=== PATIENT | male | born 1990 | race Caucasian/White ===

== ENCOUNTER 2023-06-13 14:14 | Emergency (ER) | payer SELFPAY ==
[2023-06-13 14:15] VITALS: BP 152/100; PULSE 114; RESP 16; TEMP 37.1; O2SAT 97; BMI 32.6
--- NOTE | 2023-06-13 14:40 | EX.ED.SAOD ---
HPI <SANDHYA De Los Santos - Last Filed: 06/13/23 17:57> History of Present Illness Chief Complaint: Mental Health Narrative Narrative: Patient presenting today after drinking 3 bottles of cough syrup that he bought [id number] today. He reports that it was Coricidin and he drank it prior to calling EMS. He reports that he feels very anxious. He states that he has done this before and he drinks it to get high. He was not trying to harm himself. He denies any suicidal thoughts/ideations, thoughts of self-harm, thoughts of harming others, visual/auditory hallucinations. He admits to using meth about a week ago but denies any other substance use. He denies a PMH of any chronic health conditions. He denies any nausea, vomiting, chest pain, and shortness of breath. PFSH <SANDHYA De Los Santos - Last Filed: 06/13/23 17:57> PFSH Medical History no medical history Allergy/AdvReac Type Severity Reaction Status Date / Time No Known Allergies Allergy Verified 06/13/23 14:18 Surgical History no surgical history Social History Smoking Status: Never smoker ROS <SANDHYA De Los Santos - Last Filed: 06/13/23 17:57> ROS ED Constitutional Constitutional ED: Denies chills or fever(s) Cardiovascular Cardiovascular: Reports racing heartbeat; Denies chest pain Respiratory/Chest Respiratory/Chest: Denies cough or dyspnea Gastrointestinal Gastrointestinal: Denies abdominal pain, nausea or vomiting Genitourinary Genitourinary ED: Denies dysuria or urinary frequency Musculoskeletal Musculoskeletal: Denies arthralgias or myalgias Integumentary Denies abscess, Abrasions or rash Neurologic Neurologic: Denies confusion, dizziness, paresthesias or weakness Psychiatric Psychiatric: Reports depression; Denies suicidal ideation or suicidal thoughts EXAM <SANDHYA De Los Santos Last Filed: 06/13/23 17:57> Physical Exam Const Vital Signs: 06/13/23 14:15 06/13/23 16:12 06/13/23 17:20 Temperature 98.8 F Temperature Source Temporal Pulse Rate 114 H 110 H 110 H Respiratory Rate 16 18 18 Blood Pressure 152/100 H 154/76 H 154/76 H Blood Pressure Mean 117 102 Pulse Ox 97 98 98 Oxygen Delivery Method Room Air Positive well nourished and well developed Constitutional Narrative: Anxious appearing General Appearance ED: well developed HEENT Reports normocephalic and head/scalp atraumatic Mouth ED: Yes moist mucous membranes normal Eyes EOMs intact bilaterally Eyes Narrative: Dilated pupils Neck full ROM and supple Chest Wall inspection of chest normal Resp normal respiratory effort and clear to auscultation bilaterally Cardio regular rate and regular rhythm GI soft to palpation, non-tender, non-distended and no masses Back/Spine normal ROM and normal to inspection Extremity normal to inspection and full ROM Neuro oriented x3, CN's II-XII intact bilaterally, moves all extremities, no focal motor deficits and no sensory deficits noted Sensorium / Orientation: awake and alert Psych Mood & Affect: anxious Skin no rashes or lesions noted and no wounds <Dr. Jhon Mon MD - Last Filed: 06/17/23 08:23> Physical Exam Const Vital Signs: 06/13/23 14:15 06/13/23 16:12 06/13/23 17:20 Temperature 98.8 F Temperature Source Temporal Pulse Rate 114 H 110 H 110 H Respiratory Rate 16 18 18 Blood Pressure 152/100 H 154/76 H 154/76 H Blood Pressure Mean 117 102 Pulse Ox 97 98 98 Oxygen Delivery Method Room Air MDM <SANDHYA De Los Santos - Last Filed: 06/13/23 17:57> [facility] Narrative Medical decision making narrative: Patient presenting today after ingesting Coricidin tablets in an attempt to get high. Initially he told me it was a cough syrup but then reported that it was tablets. Patient is anxious, is tachycardic, has dilated pupils, and has altered mentation. He is pacing in the room and tremoring. He was given activated charcoal as well as IV fluids. On reexamination patient reports he is feeling much better. His speech is much clearer and he no longer appears anxious. He did not do this in an attempt to harm himself. He reports that he just broke up with his girlfriend and has been having a difficult time dealing with that. workers compensation attorney did see patient and he did tell her that he is currently homeless after breaking up with his girlfriend, he was given resources on places he can stay as well as getting help for his polysubstance abuse. Patient was observed in the ED and feels well enough to be discharged. I have given him a referral for a PCP as he does not have 1. He is to follow-up with the PCP and has been given return instructions. He will be discharged home in stable condition and is comfortable with plan. I have personally performed a face to face assessment of the patient and have reviewed the CHAR Note. I performed a substantive portion of the visit including all aspects of the following. My teixeira findings include: History is remarkable for patient stating he took 48 Chlor-Trimeton tablets to get high. He does admit to methamphetamine use 1 week ago. He does admit to cannabis use. He denies any other drug use. Patient denies headache. He does complain of dry mouth and thirst. He does report bilateral blurred vision. He denies chest pain or shortness of breath. He denies abdominal pain. He denies intentionally taking this medicine to harm himself. Trapeze Performer run sheet documents that he took the pills to get high. Exam is remarkable for anticholinergic toxidrome. Patient has dilated pupils. He has dry mouth. He is slightly flushed. He is tachycardic. He has altered mental status. Head is atraumatic normocephalic. Ears are normal. TMs are normal. Posterior pharynx is unremarkable. Nares patent. Neck is supple. Lungs are clear to auscultation with symmetric breath sounds. Heart is rapid and regular. Monitor reveals a sinus tachycardia of 120. There is no ectopy. Abdomen is soft nontender. Examination of the back is unremarkable. Examination of the extremities is unremarkable with no clubbing or cyanosis. He has distal peripheral pulses. He has no rash or lesions noted on dermatologic exam. Patient's mental status is altered due to the anticholinergic toxidrome. Medical Decision Making blood work was obtained as well as talk screen and patient was given activated charcoal. Patient drink the activated charcoal without difficulty. Patient was read assessed at 1548. He is speaking more clearly. He states he does not feel foggy. Other additions or changes: [None] Lab Data Labs: Laboratory Results - last 24 hr 06/13/23 06/13/23 14:02 15:00 WBC 9.8 RBC 4.47 L Hgb 13.2 Hct 40.2 MCV 89.9 MCH 29.5 MCHC 32.8 RDW Std Deviation 48.3 H RDW Coeff of Porter 14.6 Plt Count 274 MPV 11.8 Immature Gran % (Auto) 0.800 Neut % (Auto) 68.4 Lymph % (Auto) 22.4 [place] % (Auto) 7.6 Eos % (Auto) 0.3 Baso % (Auto) 0.5 Absolute Neuts (auto) 6.7 Absolute Lymphs (auto) 2.19 Nucleated RBC % 0 Sodium 140 Potassium 3.4 L Chloride 108 H Carbon Dioxide 27.0 Anion Gap 5 BUN 12 Creatinine 1.12 Estim Creat Clear Calc 97.77 Est GFR (MDRD) Af Amer 97 Est GFR (MDRD) Non-Af 81 BUN/Creatinine Ratio 10.7 Glucose 97 Calcium 9.6 Total Bilirubin 0.50 AST 23 ALT 43 Alkaline Phosphatase 73 Total Protein 8.1 Albumin 3.9 Globulin 4.2 Albumin/Globulin Ratio 0.9 Urine Opiates Screen POSITIVE H Urine Methadone Screen NEGATIVE Ur Barbiturates Screen NEGATIVE Ur Phencyclidine Scrn POSITIVE H Ur Amphetamines Screen POSITIVE H MDMA (Ecstasy) Screen NEGATIVE U Benzodiazepines Scrn NEGATIVE Urine Cocaine Screen NEGATIVE U Cannabinoids Screen POSITIVE H Ur Drug Screen Comment <Dr. Jhon Mon MD - Last Filed: 06/17/23 08:23> MDM MDM Narrative Medical decision making narrative: I have personally performed a face to face assessment of the patient and have reviewed the CHAR Note. I performed a substantive portion of the visit including all aspects of the following. My teixeira findings include: History is remarkable for patient stating he took 48 Chlor-Trimeton tablets to get high. He does admit to methamphetamine use 1 week ago. He does admit to cannabis use. He denies any other drug use. Patient denies headache. He does complain of dry mouth and thirst. He does report bilateral blurred vision. He denies chest pain or shortness of breath. He denies abdominal pain. He denies intentionally taking this medicine to harm himself. Trapeze Performer run sheet documents that he took the pills to get high. Exam is remarkable for anticholinergic toxidrome. Patient has dilated pupils. He has dry mouth. He is slightly flushed. He is tachycardic. He has altered mental status. Head is atraumatic normocephalic. Ears are normal. TMs are normal. Posterior pharynx is unremarkable. Nares patent. Neck is supple. Lungs are clear to auscultation with symmetric breath sounds. Heart is rapid and regular. Monitor reveals a sinus tachycardia of 120. There is no ectopy. Abdomen is soft nontender. Examination of the back is unremarkable. Examination of the extremities is unremarkable with no clubbing or cyanosis. He has distal peripheral pulses. He has no rash or lesions noted on dermatologic exam. Patient's mental status is altered due to the anticholinergic toxidrome. Medical Decision Making blood work was obtained as well as talk screen and patient was given activated charcoal. Patient drink the activated charcoal without difficulty. Patient was read assessed at 1548. He is speaking more clearly. He states he does not feel foggy. Other additions or changes: [None] Lab Data Attestation: I reviewed the patient's lab results. Lab results narrative: CBC is unremarkable. Comprehensive metabolic panel is unremarkable. Tox screen is positive for opiates, phencyclidine, amphetamines and cannabinoids. Labs: Laboratory Results - last 24 hr 06/13/23 06/13/23 14:02 15:00 WBC 9.8 RBC 4.47 L Hgb 13.2 Hct 40.2 MCV 89.9 MCH 29.5 MCHC 32.8 RDW Std Deviation 48.3 H RDW Coeff of Porter 14.6 Plt Count 274 MPV 11.8 Immature Gran % (Auto) 0.800 Neut % (Auto) 68.4 Lymph % (Auto) 22.4 [place] % (Auto) 7.6 Eos % (Auto) 0.3 Baso % (Auto) 0.5 Absolute Neuts (auto) 6.7 Absolute Lymphs (auto) 2.19 Nucleated RBC % 0 Sodium 140 Potassium 3.4 L Chloride 108 H Carbon Dioxide 27.0 Anion Gap 5 BUN 12 Creatinine 1.12 Estim Creat Clear Calc 97.77 Est GFR (MDRD) Af Amer 97 Est GFR (MDRD) Non-Af 81 BUN/Creatinine Ratio 10.7 Glucose 97 Calcium 9.6 Total Bilirubin 0.50 AST 23 ALT 43 Alkaline Phosphatase 73 Total Protein 8.1 Albumin 3.9 Globulin 4.2 Albumin/Globulin Ratio 0.9 Urine Opiates Screen POSITIVE H Urine Methadone Screen NEGATIVE Ur Barbiturates Screen NEGATIVE Ur Phencyclidine Scrn POSITIVE H Ur Amphetamines Screen POSITIVE H MDMA (Ecstasy) Screen NEGATIVE U Benzodiazepines Scrn NEGATIVE Urine Cocaine Screen NEGATIVE U Cannabinoids Screen POSITIVE H Ur Drug Screen Comment Discharge Plan Triage Chief Complaint: Mental Health ED Midlevel Provider: Elena Wyman ED Provider: Jhon Mon Dx/Rx/DC Orders Clinical Impression: Sinus tachycardia, Acute metabolic encephalopathy, Anticholinergic drug overdose, Polysubstance abuse Instructions: ED Drug Abuse Primary Care Provider: Care Physician,No Primary Referrals: Chico Person MD [Non-Staff] - 3-5 Days NOT,DEFINED [Non-Staff] - Activity Restrictions/Additional Instructions: I have given you a referral for a PCP that you can follow-up with. Please return for any worsening of your symptoms. Disposition Disposition: Home, Self Care Discharge Date/Time: 06/13/23 17:53
[2023-06-13] MEDS: Activated Charcoal 50 GM/240 ML BOT PO (14:58)
[2023-06-13] MEDS: 0.9% Normal Saline 1,000 ML 999 ML IV (15:07)
[2023-06-13 15:15] LABS: Absolute Lymphocyte Count 2.19 X10^3/uL (0.83-4.51); Absolute Neutrophil Count 6.7 X10^3/uL (2.0-7.7); Basophil# 0.05 X10^3/uL; Basophil% 0.5 % (0-1); Eosinophil# 0.03 X10^3/uL; Eosinophils% 0.3 % (0-5); Hematocrit 40.2 % (40-54); Hemoglobin 13.2 g/dL (13.0-16.5); Lymphocyte # 2.19 X10^3/ul (0.83-4.51); Lymphocyte % 22.4 % (19-41); Mean Corp Hgb Conc 32.8 g/dL (32-36); Mean Corpuscular Hgb 29.5 pg (27.0-32.0); Mean Corpuscular Volume 89.9 fL (80-94); Mean Platelet Vol. 11.8 fl (6.2-12.0); Monocyte# 0.74 X10^3/uL; Monocyte% 7.6 % (0-10); NRBC Flagged by Analyzer 0 % (0-5); Neutrophil # 6.69 X10^3/uL (2.7-7.7); Neutrophil % 68.4 % (47-70); Platelet Count 274 K/mm3 (150-450); RBC Distribution Width CV 14.6 % (11.6-14.6); RBC Distribution Width SD 48.3 fl (35.1-43.9); Red Blood Count 4.47 M/mm3 (4.6-6.2); White Blood Count 9.8 K/mm3 (4.4-11.0)
[2023-06-13 15:24] LABS: ALB/GLOB Ratio 0.9 RATIO (0.9-2.4); AST(SGOT) 23 U/L (15-37); Alanine Aminotransfer ALT/SGPT 43 U/L (16-61); Albumin, Serum 3.9 g/dL (3.2-5.0); Alkaline Phosphatase 73 U/L (45-117); Anion Gap 5 (5-15); BUN 12 mg/dL (7-18); BUN/Creat Ratio 10.7 RATIO (10-20); Calcium,Total 9.6 mg/dL (8.5-10.1); Chloride 108 mmol/L (98-107); Creatinine, Serum 1.12 mg/dL (0.70-1.30); EST Glomerular Filtration Rate 81 mL/min (>60); Est Glom Filt Rate - Afr Amer 97 mL/min (>60); Estimated Creatinine Clearance 97.77 ml/min; Globulin 4.2 g/dL (2.2-4.2); Glucose 97 mg/dL (74-106); Potassium 3.4 mmol/L (3.5-5.1); Protein, Total 8.1 g/dL (6.4-8.2); Sodium Level 140 mmol/L (136-145)
[2023-06-13 15:34] LABS: Amphetamine Urine VISTA POSITIVE (<1000 ng/mL); Barbiturate Urine VISTA NEGATIVE (< 200 ng/mL); Benzodiazepine Urine VISTA NEGATIVE (< 200 ng/mL); Cocaine Urine VISTA NEGATIVE (< 300 ng/mL); Ecstacy Urine VISTA NEGATIVE (< 500 ng/mL); Methadone Urine VISTA NEGATIVE (< 300 ng/mL); PCP Urine VISTA POSITIVE (< 25 ng/mL); THC Urine VISTA POSITIVE (< 50 ng/mL); Vista UDS pH Range 5
[2023-06-13 16:12] VITALS: BP 154/76; PULSE 110; RESP 18; O2SAT 98
--- NOTE | 2023-06-13 17:18 | CM.ED ---
Social Work SW consulted with MD Mon regarding patient's presenting problems and safety concerns. explained SW evaluation is not needed as patient denies SI and reports drinking cold medicine to get high. SW met with patient and introduced herself and role as [facility] SW. Patient lying on hospital bed and agreeable to speak with SW. SW inquired about recent events and insurance. Patient states he drank cough medicine to get high and has been using other substances. Patient denies SI but reports struggling with anxiety and depression. Patient reports having no insurance currently nor job as he recently moved to [place] a few months ago from [place] to be with his now ex girlfriend. Patient explained his father lives in [place] but he is unsure where he will go. SW provided patient with emotional support and reviewed the following resources: Medicaid application, [facility] resource list, homeless shelters, community counseling information including crisis contact numbers and the treatment navigator contact phone number. SW also educated patient on [facility] services. Patient was receptive towards resources and voiced no other needs at this time. SW updated care team of resources provided. Char Price MSW, NOE
[2023-06-13 17:20] VITALS: BP 154/76; PULSE 110; RESP 18; O2SAT 98
== END 2023-06-13 17:53 | disposition home or self-care (01) ==
PROVIDERS: Physician Assistant; Emergency Provider Emergency Medicine; Visit Provider Emergency Medicine
DX: T44.3X1A Poisoning by other parasympatholytics [anticholinergics and antimuscarinics] and spasmolytics, accidental (unintentional), initial encounter (principal); F19.10 Other psychoactive substance abuse, uncomplicated; G93.41 Metabolic encephalopathy; R00.0 Tachycardia, unspecified; H53.8 Other visual disturbances; H57.04 Mydriasis; Z59.00 Homelessness unspecified
CPT/HCPCS: 80053; 80307; 85025; 96360; 96361; 99285; J7030

== ENCOUNTER 2023-07-27 17:43 | Emergency (ER) | payer SELFPAY ==
[2023-07-27 17:44] VITALS: BP 144/83; PULSE 101; RESP 20; TEMP 36.6; O2SAT 94; BMI 32.7
--- NOTE | 2023-07-27 17:55 | EKG12_ITS ---
Test Reason : OD Blood Pressure : / mmHG Vent. Rate : 107 BPM Atrial Rate : 107 BPM P-R Int : 172 ms QRS Dur : 088 ms QT Int : 334 ms P-R-T Axes : 074 074 028 degrees QTc Int : 445 ms Sinus tachycardia Possible Left atrial enlargement Septal infarct , age undetermined Abnormal ECG Confirmed by NIC MAYBERRY, MAURICIO ([id number]), technical editor MALCOLM PEREYRA ([id number]) on 07/30/2023 11:46:58 AM Referred By: Confirmed By:JUAN LUIS LUCERO MD
[2023-07-27 18:17] LABS: Absolute Lymphocyte Count 1.84 X10^3/uL (0.83-4.51); Absolute Neutrophil Count 12.4 X10^3/uL (2.0-7.7); Basophil# 0.06 X10^3/uL; Basophil% 0.4 % (0-1); Eosinophil# 0.03 X10^3/uL; Eosinophils% 0.2 % (0-5); Hematocrit 39.3 % (40-54); Hemoglobin 12.9 g/dL (13.0-16.5); Lymphocyte # 1.84 X10^3/ul (0.83-4.51); Mean Corp Hgb Conc 32.8 g/dL (32-36); Mean Corpuscular Hgb 29.5 pg (27.0-32.0); Mean Corpuscular Volume 89.7 fL (80-94); Mean Platelet Vol. 10.7 fl (6.2-12.0); Monocyte# 0.82 X10^3/uL; Monocyte% 5.4 % (0-10); NRBC Flagged by Analyzer 0 % (0-5); Neutrophil # 12.42 X10^3/uL (2.7-7.7); Neutrophil % 81.3 % (47-70); Platelet Count 300 K/mm3 (150-450); RBC Distribution Width CV 13.9 % (11.6-14.6); RBC Distribution Width SD 45.2 fl (35.1-43.9); Red Blood Count 4.38 M/mm3 (4.6-6.2); White Blood Count 15.3 K/mm3 (4.4-11.0)
[2023-07-27 18:26] LABS: Prothrombin Time (Protime)PT. 13.3 SECONDS (11.7-14.9)
[2023-07-27 18:31] LABS: ALB/GLOB Ratio 0.9 RATIO (0.9-2.4); AST(SGOT) 25 U/L (15-37); Alanine Aminotransfer ALT/SGPT 41 U/L (16-61); Albumin, Serum 3.7 g/dL (3.2-5.0); Alkaline Phosphatase 69 U/L (45-117); Anion Gap 3 (5-15); BUN 8 mg/dL (7-18); BUN/Creat Ratio 8.1 RATIO (10-20); Chloride 106 mmol/L (98-107); Creatinine, Serum 0.98 mg/dL (0.70-1.30); EST Glomerular Filtration Rate 94 mL/min (>60); Est Glom Filt Rate - Afr Amer 113 mL/min (>60); Estimated Creatinine Clearance 111.73 ml/min; Globulin 4.2 g/dL (2.2-4.2); Glucose 75 mg/dL (74-106); Potassium 3.4 mmol/L (3.5-5.1); Protein, Total 7.9 g/dL (6.4-8.2); Sodium Level 135 mmol/L (136-145)
--- NOTE | 2023-07-27 18:38 | ED.RN ---
THIS RN CHECK WITH DR BUSTOS TO SEE IF HE WANTED US TO WAIT FOR 4 HOUR TYLENOL LEVEL BEFORE GIVING ACETADOTE,PER DR. BUSTOS-SETH TO GIVE ACETADOTE NOW WITHOUT LEVEL.
[2023-07-27 18:56] LABS: Acetaminophen (Tylenol) Level < 2.0 ug/mL (10.0-30.0); Alcohol, Blood (Medical)-Serum < 3.0 mg/dL
[2023-07-27 18:57] LABS: Amphetamine Urine VISTA NEGATIVE (<1000 ng/mL); Barbiturate Urine VISTA NEGATIVE (< 200 ng/mL); Benzodiazepine Urine VISTA NEGATIVE (< 200 ng/mL); Cocaine Urine VISTA NEGATIVE (< 300 ng/mL); Ecstacy Urine VISTA NEGATIVE (< 500 ng/mL); Methadone Urine VISTA NEGATIVE (< 300 ng/mL); PCP Urine VISTA POSITIVE (< 25 ng/mL); THC Urine VISTA POSITIVE (< 50 ng/mL); Vista UDS pH Range 5
[2023-07-27] MEDS: Acetylcysteine 15,000 MG in Dextrose 5%-Water (250mL Bag) 200 ML 200 MG IV (19:23)
[2023-07-27 19:28] VITALS: BP 141/84; PULSE 112; RESP 16; O2SAT 95
--- NOTE | 2023-07-27 20:01 | EDS_ITS ---
HPI History of Present Illness Chief Complaint: Overdose Onset/Context/Timing Onset: Today Narrative Narrative: Patient took 2 boxes of Coricidin cough and cold sometime this morning. Presented this evening because he did not like the way he felt. He took this to try to get high. He denies any suicidal or homicidal thoughts. No other associated symptoms. Nothing makes it better or worse. PFSH PFSH Home Medications NK 07/27/23 [History Last Taken Unknown] Allergy/AdvReac Type Severity Reaction Status Date / Time No Known Allergies Allergy Verified 06/13/23 14:18 Social History Smoking Status: Never smoker ROS ROS ED Review of Systems ROS Unobtainable: Denies due to encephalopathy Constitutional Constitutional ED: Denies fever(s) Eyes Eyes: Denies blurry vision or change in vision ENT ENT ED: Denies ear pain Cardiovascular Cardiovascular: Denies chest pain Respiratory/Chest Respiratory/Chest: Denies dyspnea Gastrointestinal Gastrointestinal: Denies abdominal pain Genitourinary Genitourinary ED: Denies dysuria Musculoskeletal Musculoskeletal: Denies arthralgias Integumentary Denies abscess Neurologic Neurologic: Denies headache(s) Psychiatric Psychiatric: Denies anxiety, depression, suicidal ideation or suicidal thoughts Endocrine Endocrinology: Denies cold intolerance Hematologic/Lymphatic Hematologic/Lymphatic: Denies systems reviewed and no addt'l complaints, except as documented Allergic/Immunologic Allergic/Immunologic ED: Denies mouth swelling EXAM Physical Exam Const Vital Signs: 07/27/23 17:44 07/27/23 19:28 Temperature 97.8 F Temperature Source Temporal Pulse Rate 101 H 112 H Respiratory Rate 20 H 16 Blood Pressure 144/83 H 141/84 H Blood Pressure Mean 103 103 Pulse Ox 94 95 Oxygen Delivery Method Room Air Positive well nourished and well developed General Appearance ED: well developed HEENT Reports moist mucous membranes Eyes EOMs intact bilaterally Resp normal respiratory effort and clear to auscultation bilaterally Cardio regular rate and regular rhythm GI normal to inspection, nondistended, normoactive bowel sounds, non-tender and non-distended Extremity normal to inspection Neuro Neuro Narrative: Psychomotor slowing Sensorium / Orientation: alert Psych Attitude: No agitated Mood & Affect: depressed; Negative for anxious or tearful Skin no rashes or lesions noted MDM MDM MDM Narrative Medical decision making narrative: It was unclear if the patient's formulation contains Tylenol, so N- acetylcysteine was ordered empirically. EKG showed sinus rhythm. Normal intervals and no widening. He was placed on the monitor. Basic labs including LFTs, INR were unremarkable. Toxicology screen was positive for multiple substances, but Tylenol level was negative. Patient was discussed with poison control. Advised waiting 6 hours for the normal formulation and rechecking his mental status. The patient's mental status improved and he had no complaints. He did not want to wait the full 6 hours. He said that he took the meds longer than 6 hours ago. I advised that I would like to recheck his Tylenol level, but he declined. If he truly took the meds greater than 6 hours ago, I believe this is reasonable. He is not suicidal or homicidal and will be discharged home. Impression #1 Coricidin overdose Impression #2 dextromethorphan overdose Impression #3 chlorpheniramine overdose Lab Data Labs: Laboratory Results - last 24 hr 07/27/23 18:09 WBC 15.3 H RBC 4.38 L Hgb 12.9 L Hct 39.3 L MCV 89.7 MCH 29.5 MCHC 32.8 RDW Std Deviation 45.2 H RDW Coeff of Porter 13.9 Plt Count 300 MPV 10.7 Immature Gran % (Auto) 0.700 Neut % (Auto) 81.3 H Lymph % (Auto) 12.0 L [place] % (Auto) 5.4 Eos % (Auto) 0.2 Baso % (Auto) 0.4 Absolute Neuts (auto) 12.4 H Absolute Lymphs (auto) 1.84 Nucleated RBC % 0 PT 13.3 INR 1.0 Sodium 135 L Potassium 3.4 L Chloride 106 Carbon Dioxide 26.0 Anion Gap 3 L BUN 8 Creatinine 0.98 Estim Creat Clear Calc 111.73 Est GFR (MDRD) Af Amer 113 Est GFR (MDRD) Non-Af 94 BUN/Creatinine Ratio 8.1 L Glucose 75 Calcium 9.0 Total Bilirubin 0.50 AST 25 ALT 41 Alkaline Phosphatase 69 Total Protein 7.9 Albumin 3.7 Globulin 4.2 Albumin/Globulin Ratio 0.9 Urine Opiates Screen POSITIVE H Urine Methadone Screen NEGATIVE Acetaminophen < 2.0 L Ur Barbiturates Screen NEGATIVE Ur Phencyclidine Scrn POSITIVE H Ur Amphetamines Screen NEGATIVE MDMA (Ecstasy) Screen NEGATIVE U Benzodiazepines Scrn NEGATIVE Urine Cocaine Screen NEGATIVE U Cannabinoids Screen POSITIVE H Ur Drug Screen Comment Ethyl Alcohol < 3.0 Discharge Plan Triage Chief Complaint: Overdose ED Provider: Alexey Turner Dx/Rx/DC Orders Instructions: ED Accidental Ingestion ... Prescriptions: No Action NK Primary Care Provider: Care Physician,No Primary Referrals: Avis Gill MD [Med Staff - Assistant Professor Surgical Technology] - Disposition Disposition: Home, Self Care
[2023-07-27 20:11] VITALS: BP 143/83; PULSE 93; RESP 16; O2SAT 95
== END 2023-07-27 20:20 | disposition home or self-care (01) ==
PROVIDERS: Emergency Provider Emergency Medicine; Visit Provider Emergency Medicine
DX: T48.3X1A Poisoning by antitussives, accidental (unintentional), initial encounter (principal); T45.0X1A Poisoning by antiallergic and antiemetic drugs, accidental (unintentional), initial encounter
CPT/HCPCS: 80053; 80307; 80329; 82077; 85025; 85610; 93005; 96365; 99284; J7050; A4216; G0480

== ENCOUNTER 2023-09-01 12:15 | Emergency (ER) | payer SELFPAY ==
[2023-09-01 12:16] VITALS: BP 136/96; PULSE 96; RESP 22; TEMP 36.6; O2SAT 96; BMI 31.5
--- NOTE | 2023-09-01 12:30 | RAD_ITS ---
INDICATION: fall -- -- RIGHT ANTERIOR MID RIB/ABD PAIN, UNSURE OF INJURY EXAMINATION/TECHNIQUE: X-RAY - XR Ribs Unilateral W/ PA Chest Min 3 Views COMPARISON: No relevant prior comparison study available FINDINGS: SOFT TISSUES: No soft tissue swelling or gas. BONES: No displaced fracture. No sclerotic or destructive changes observed. VISUALIZED LUNGS: Clear. No pneumothorax. RAD/Ribs Uni Min 3V w/PA Chest IMPRESSION: No evidence of displaced rib fracture. Electronically Signed: Noe Martinez MD at 12:46 EDT ,
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
[2023-09-01 13:11] VITALS: BP 118/72; PULSE 61; RESP 15; O2SAT 97
== END 2023-09-01 13:11 | disposition home or self-care (01) ==
PROVIDERS: Emergency Provider Emergency Medicine; Visit Provider Emergency Medicine
DX: S29.019A Strain of muscle and tendon of unspecified wall of thorax, initial encounter (principal); S20.211A Contusion of right front wall of thorax, initial encounter; R07.81 Pleurodynia; V18.4XXA Pedal cycle driver injured in noncollision transport accident in traffic accident, initial encounter; Y93.55 Activity, bike riding
CPT/HCPCS: 71101; 99282

== ENCOUNTER 2023-09-12 15:03 | Emergency (ER) | payer SELFPAY ==
[2023-09-12 15:04] VITALS: BP 153/90; PULSE 118; RESP 19; TEMP 36.9; O2SAT 97
[2023-09-12 15:08] VITALS: BP 153/90; PULSE 111; RESP 24; O2SAT 94
--- NOTE | 2023-09-12 16:01 | EX.ED.SAOD ---
HPI History of Present Illness Chief Complaint: Mental Health Narrative Narrative: 33-year-old male who initially presented for shortness of breath states he no longer is short of breath. He states he took too much Coricidin today. He does not know how much he took but he states that he is tripping. He denies chest pain or shortness of breath currently. He denies any illegal drug use. States he washed his Coricidin down with water and not alcohol. PFSH PFS Medical History (Updated 09/12/23 @ 15:08 by Faby Suresh) No acute medical problems Home Medications NK 07/27/23 [History Last Taken Unknown] naproxen 500 mg tablet (Naprosyn) 500 mg PO BID PRN pain #20 tabs 09/01/23 [Rx Last Taken Unknown] Allergy/AdvReac Type Severity Reaction Status Date / Time No Known Allergies Allergy Verified 09/12/23 15:07 Social History Smoking Status: Never smoker EXAM Physical Exam Const Vital Signs: 09/12/23 15:04 09/12/23 15:08 09/12/23 16:03 Temperature 98.4 F Temperature Source Temporal Pulse Rate 118 H 111 H 73 Respiratory Rate 19 H 24 H 22 H Blood Pressure 153/90 H 153/90 H Blood Pressure Mean 111 111 Pulse Ox 97 94 Oxygen Delivery Method Room Air Room Air 09/12/23 17:00 09/12/23 18:00 09/12/23 19:00 Temperature Temperature Source Pulse Rate 103 H Respiratory Rate 18 16 16 Blood Pressure Blood Pressure Mean Pulse Ox Oxygen Delivery Method MDM MDM MDM Narrative Medical decision making narrative: Patient presenting with confusion and altered mental status. He ate some Coricidin DM not sure how much. He is altered. He denies any drug use or alcohol use. I do not see any evidence of trauma. Looks like he has been here before with similar symptoms. I obtained a CBC to assess white blood cell count, hemoglobin, platelets. BMP to assess renal function, electrolytes, ammonia to assess ammonia level. Urine drug screen will be obtained. Alcohol level will be obtained. Seen Aminofen level and salicylate level will be obtained. CBC shows leukocytosis 11.7. Hemoglobin stable 12.8. Platelets are normal at 260. Renal function and electrolytes unremarkable. Ammonia level normal at 21. Salicylates less than 1.7, acetaminophen less than 2.0. EtOH is negative. Urine drug screen positive for PCP, amphetamines, DNA, cannabinoids. Patient was given IV fluids. He was monitored here. He eventually went to sleep. He has been here for about 6 hours monitoring. He woke up and feels better and wants to go home. I feel he stable for discharge at this time. He has stable gait and ambulated out of the emergency room Impression: 1. PCP abuse 2. Cannabinoid abuse 3. Amphetamine abuse 4. MDMA abuse. Lab Data Attestation: I reviewed the patient's lab results. Labs: Laboratory Results - last 24 hr 09/12/23 09/12/23 14:50 18:20 WBC 11.7 H RBC 4.37 L Hgb 12.8 L Hct 38.6 L MCV 88.3 MCH 29.3 MCHC 33.2 RDW Std Deviation 47.2 H RDW Coeff of Porter 14.6 Plt Count 260 MPV 11.8 Immature Gran % (Auto) 0.300 Neut % (Auto) 57.6 Lymph % (Auto) 26.1 [place] % (Auto) 14.1 H Eos % (Auto) 1.4 Baso % (Auto) 0.5 Absolute Neuts (auto) 6.7 Absolute Lymphs (auto) 3.05 Nucleated RBC % 0 Differential Comment SCANNED Sodium 141 Potassium 2.9 L Chloride 106 Carbon Dioxide 29.0 Anion Gap 6 BUN 8 Creatinine 1.12 Est GFR (MDRD) Af Amer 97 Est GFR (MDRD) Non-Af 80 BUN/Creatinine Ratio 7.1 L Glucose 76 Calcium 9.3 Ammonia 21.0 Salicylates < 1.7 L Urine Opiates Screen NEGATIVE Urine Methadone Screen NEGATIVE Acetaminophen < 2.0 L Ur Barbiturates Screen NEGATIVE Ur Phencyclidine Scrn POSITIVE H Ur Amphetamines Screen POSITIVE H MDMA (Ecstasy) Screen POSITIVE H U Benzodiazepines Scrn NEGATIVE Urine Cocaine Screen NEGATIVE U Cannabinoids Screen POSITIVE H Ur Drug Screen Comment Ethyl Alcohol < 3.0 Discharge Plan Triage Chief Complaint: Mental Health ED Provider: Eddie Garcia Dx/Rx/DC Orders Prescriptions: No Action NK naproxen [Naprosyn] 500 mg tablet 500 mg PO BID PRN (Reason: pain) Qty: 20 0RF Primary Care Provider: Care Physician,No Primary Referrals: Care Physician,No Primary [Primary Care Provider] - Disposition Disposition: Home, Self Care Discharge Date/Time: 09/12/23 19:41
[2023-09-12 16:03] VITALS: PULSE 73; RESP 22
[2023-09-12 16:39] LABS: Absolute Lymphocyte Count 3.05 X10^3/uL (0.83-4.51); Absolute Neutrophil Count 6.7 X10^3/uL (2.0-7.7); Basophil# 0.06 X10^3/uL; Basophil% 0.5 % (0-1); Eosinophil# 0.16 X10^3/uL; Eosinophils% 1.4 % (0-5); Hematocrit 38.6 % (40-54); Hemoglobin 12.8 g/dL (13.0-16.5); Lymphocyte # 3.05 X10^3/ul (0.83-4.51); Lymphocyte % 26.1 % (19-41); Mean Corp Hgb Conc 33.2 g/dL (32-36); Mean Corpuscular Hgb 29.3 pg (27.0-32.0); Mean Corpuscular Volume 88.3 fL (80-94); Mean Platelet Vol. 11.8 fl (6.2-12.0); Monocyte# 1.64 X10^3/uL; Monocyte% 14.1 % (0-10); NRBC Flagged by Analyzer 0 % (0-5); Neutrophil # 6.72 X10^3/uL (2.7-7.7); Neutrophil % 57.6 % (47-70); POSITIVE DIFFERENTIAL YES; Platelet Count 260 K/mm3 (150-450); RBC Distribution Width CV 14.6 % (11.6-14.6); RBC Distribution Width SD 47.2 fl (35.1-43.9); Red Blood Count 4.37 M/mm3 (4.6-6.2); White Blood Count 11.7 K/mm3 (4.4-11.0)
[2023-09-12] MEDS: 0.9% Normal Saline (1000mL) 1,000 ML 999 ML IV (16:50)
[2023-09-12 16:55] LABS: Differential Indicated SCAN CRITERIA MET
[2023-09-12 17:00] VITALS: PULSE 103; RESP 18
[2023-09-12 17:04] LABS: Anion Gap 6 (5-15); BUN 8 mg/dL (7-18); BUN/Creat Ratio 7.1 RATIO (10-20); Calcium,Total 9.3 mg/dL (8.5-10.1); Chloride 106 mmol/L (98-107); Creatinine, Serum 1.12 mg/dL (0.70-1.30); EST Glomerular Filtration Rate 80 mL/min (>60); Est Glom Filt Rate - Afr Amer 97 mL/min (>60); Glucose 76 mg/dL (74-106); Potassium 2.9 mmol/L (3.5-5.1); Sodium Level 141 mmol/L (136-145)
[2023-09-12 17:34] LABS: Alcohol, Blood (Medical)-Serum < 3.0 mg/dL
[2023-09-12 17:36] LABS: Acetaminophen (Tylenol) Level < 2.0 ug/mL (10.0-30.0); Salicylate < 1.7 mg/dL (2.8-20.0)
[2023-09-12 17:39] LABS: Differential Comment SCANNED
[2023-09-12 18:00] VITALS: RESP 16
[2023-09-12 18:37] LABS: Amphetamine Urine VISTA POSITIVE (<1000 ng/mL); Barbiturate Urine VISTA NEGATIVE (< 200 ng/mL); Benzodiazepine Urine VISTA NEGATIVE (< 200 ng/mL); Cocaine Urine VISTA NEGATIVE (< 300 ng/mL); Ecstacy Urine VISTA POSITIVE (< 500 ng/mL); Methadone Urine VISTA NEGATIVE (< 300 ng/mL); PCP Urine VISTA POSITIVE (< 25 ng/mL); THC Urine VISTA POSITIVE (< 50 ng/mL); Vista UDS pH Range 5
[2023-09-12 19:00] VITALS: RESP 16
[2023-09-12 19:19] VITALS: BMI 28.9
--- NOTE | 2023-09-12 19:37 | ED.RN ---
Pt pacing in room and states he wants to leave. Verified not pink slipped with Dr. Garcia. IV removed and pt ambulated out of department without difficulty.
[2023-09-17 08:04] LABS: Pathologist Review Reviewed
== END 2023-09-12 19:41 | disposition home or self-care (01) ==
PROVIDERS: Emergency Provider Student in an Organized Health Care Education/Training Program; Visit Provider Student in an Organized Health Care Education/Training Program
DX: F16.10 Hallucinogen abuse, uncomplicated (principal); F15.10 Other stimulant abuse, uncomplicated; R41.82 Altered mental status, unspecified; F12.10 Cannabis abuse, uncomplicated
CPT/HCPCS: 80048; 80307; 80329; 82077; 82140; 85025; 96360; 96361; 99285; G0480